=== PATIENT | female | born 1975 | race Caucasian/White ===

== ENCOUNTER → 2019-08-29 16:59 | Outpatient (BNVA) | payer OTHER, SELFPAY | PROVIDERS: Family Provider Family Medicine; PCP Family Medicine; Visit Provider Family Medicine | DX: R50.9 Fever, unspecified (principal); J02.8 Acute pharyngitis due to other specified organisms; T75.3XXA Motion sickness, initial encounter | CPT/HCPCS: 87081; 87804; 87880 ==

== ENCOUNTER → 2020-01-30 09:20 | Outpatient (BNVA) | payer BC, SELFPAY | PROVIDERS: Family Provider Family Medicine; PCP Family Medicine; Visit Provider Registered Nurse | DX: I10 Essential (primary) hypertension (principal) | CPT/HCPCS: 80053; 80061; 85025 ==

== ENCOUNTER → 2020-02-09 08:52 | Outpatient (BNVA) | payer BC, SELFPAY | PROVIDERS: Family Provider Family Medicine; PCP Family Medicine; Visit Provider Registered Nurse | DX: R73.03 Prediabetes (principal); F41.9 Anxiety disorder, unspecified; R73.01 Impaired fasting glucose | CPT/HCPCS: 36416; 82962 ==

== ENCOUNTER 2021-07-30 12:57 | Outpatient (CLI) | payer OTHER, SELFPAY ==
--- NOTE | 2021-07-30 13:17 | MM_ITS ---
WS: [id number] BILATERAL DIGITAL SCREENING MAMMOGRAPHY WITH CAD CLINICAL INFORMATION: SCREENING HISTORY: Screening mammogram. No current complaints. COMPARISON: December 16, 2015 TECHNIQUE: Bilateral CC and MLO views. FINDINGS: The breasts are composed of heterogeneous fibroglandular density tissue, which can limit the detectio n of small underlying mass lesions. Stable intramammary lymph node upper outer RIGHT breast. No suspi cious mass, asymmetry, calcifications, or architectural distortion. No evidence of malignancy. MM/[place] [id number] IMPRESSION: BI-RADS: 2-Benign FOLLOW UP: 1 Year Follow-up Recommend return to annual screening mammography.
== END 2021-07-30 12:58 | disposition home or self-care (01) ==
LOC: RADSHAW 13:10
PROVIDERS: PCP Registered Nurse; Visit Provider Registered Nurse
DX: Z12.31 Encounter for screening mammogram for malignant neoplasm of breast (principal)
CPT/HCPCS: 77067

== ENCOUNTER → 2021-08-01 09:59 | Outpatient (BNVA) | payer OTHER, SELFPAY | PROVIDERS: PCP Registered Nurse; Visit Provider Registered Nurse | DX: N39.0 Urinary tract infection, site not specified (principal); R10.9 Unspecified abdominal pain; R39.9 Unspecified symptoms and signs involving the genitourinary system; L08.9 Local infection of the skin and subcutaneous tissue, unspecified; B95.8 Unspecified staphylococcus as the cause of diseases classified elsewhere | CPT/HCPCS: 81000 ==

== ENCOUNTER → 2022-02-03 13:57 | Outpatient (BNVA) | payer OTHER, SELFPAY | PROVIDERS: PCP Registered Nurse; Visit Provider Registered Nurse | DX: I10 Essential (primary) hypertension (principal); R73.03 Prediabetes; E66.01 Morbid (severe) obesity due to excess calories; Z68.38 Body mass index [BMI] 38.0-38.9, adult | CPT/HCPCS: 80053; 80061; 83036; 85025 ==

== ENCOUNTER → 2022-08-26 09:08 | Outpatient (BNVA) | payer OTHER, SELFPAY | PROVIDERS: PCP Registered Nurse; Visit Provider Registered Nurse | DX: R73.03 Prediabetes (principal) | CPT/HCPCS: 80053; 80061; 83036 ==